=== PATIENT | male | born 1995 | race Caucasian/White ===

== ENCOUNTER 2017-03-31 15:12 | Emergency (ER) | payer OTHER ==
[2017-03-31 15:49] VITALS: BP 122/64
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
== END 2017-03-31 17:54 | disposition home or self-care (01) ==
LOC: UCCORT 15:12
DX: S06.0X0A Concussion without loss of consciousness, initial encounter (principal); V48.5XXA Car driver injured in noncollision transport accident in traffic accident, initial encounter; Y93.9 Activity, unspecified; Y92.410 Unspecified street and highway as the place of occurrence of the external cause; F17.220 Nicotine dependence, chewing tobacco, uncomplicated
CPT/HCPCS: 70450; 99211; G0463